=== PATIENT | male | born 1990 | race Two or more races ===

== ENCOUNTER 2024-01-28 07:22 | Day surgery (SDC) | payer OTHER ==
[2024-01-28] MEDS ORDERED: LIDOCAINE HCL 1%/EPINEPHRINE 20ML VIAL IJ ONE (13:15)
[2024-01-28] MEDS ORDERED: HEMOSTATIC MATRIX 1 KIT KIT TOP ONE (13:15)
[2024-01-28] MEDS ORDERED: POVIDONE-IODINE 118 ML BOTT TOP ONE (13:15)
[2024-01-28] MEDS ORDERED: DIBUCAINE 30 GM TUBE RECTAL ONE (13:15)
[2024-01-28] MEDS ORDERED: METRONIDAZOLE/SODIUM CHLORIDE 500 MG/100 ML PIGGYBACK IV ONE (13:15)
[2024-01-28] MEDS ORDERED: CEFTRIAXONE SODIUM 2,000 MG VIAL IV ONE (13:15)
[2024-01-28] MEDS ORDERED: BUPIVACAINE HCL/PF 0.25% 30ML VIAL InF ONE (13:15)
[2024-01-28] MEDS ORDERED: PERCOCET 5-3251 EACH PO (13:59)
[2024-01-28] MEDS ORDERED: CELECOXIB200 MG PO (13:59)
[2024-01-28] MEDS ORDERED: NEURONTIN300 MG PO (14:00)
== END 2024-01-28 16:25 | disposition home or self-care (01) ==
LOC: CIR.AMB 07:22
PROVIDERS: ATTEND Surgery
DX: K62.82 Dysplasia of anus (principal)